=== PATIENT | female | born 1980 | race African-American/Black ===

== ENCOUNTER 2017-05-31 18:14 | Emergency (ER) | payer MEDICARE, OTHER ==
[~2017-05-31] VITALS: Ht 167.6 cm; Wt 92.2 kg
[2017-05-31] MEDS ORDERED: aptiom PO (18:29)
[2017-05-31] MEDS ORDERED: HYDROCHLOROTHIA25 MG PO (18:29)
== END 2017-05-31 18:37 | disposition home or self-care (01) ==
LOC: FSED 18:14
DX: R05 Cough (principal); I10 Essential (primary) hypertension; G40.909 Epilepsy, unspecified, not intractable, without status epilepticus
CPT/HCPCS: 99283

== ENCOUNTER 2017-07-15 11:53 | Emergency (ER) | payer MEDICARE, OTHER ==
[~2017-07-15] VITALS: Ht 167.6 cm; Wt 90.7 kg
[~2017-07-15 11:53] MED LIST: HYDROCHLOROTHIA25 MG PO; aptiom PO
--- OUTSIDE RECORDS SUMMARY | 2017-07-15 11:55 | XMS REPORT | Continuity of Care Document ---
Author Author [facility] Organization [facility] Address [address] [place] [address] Phone Unavailable Care Team Providers Care [employer] Name Role Phone NONSTAFF PCP Unavailable Advance Directives No advance directive information available. Problems No problem information available. Medications Current Home Medications Medication Dose Units Route Directions Days Qty Instructions Start Date Aptiom 800 Mg Oral Daily Hydrochlorothiazide 25 Mg Tablet 25 Mg Oral Daily 30 Tab Social History No social history information available. Hospital Discharge Instructions No hospital discharge instruction information available. Plan of Care Discharge Date 05/31/17 6:37pm Disposition HOME, SELF-CARE Condition at Discharge Stable Prescriptions See Medication Section Referrals Aleja Morataya MD Additional Instructions/Education Return to the closest emergency room if symptoms worsen. Warren fluticasone in you nostril as needed. Take coricidin 1 tab every 6 hours as needed. Follow up with your primary care physician tomorrow. Functional Status No functional status information available. Allergies, Adverse Reactions, Alerts Allergen Type Severity Reaction Status Last Updated Acetaminophen Allergy Unknown Active 05/31/17 Immunizations No immunization information available. Vital Signs Acute Vital Signs Vital Response Date/Time Height 5 ft 6 in 05/31/2017 6:22pm Weight 203.25 lb 05/31/2017 6:22pm Body Mass Index 32.8 kg/m^2 05/31/2017 6:22pm Results No relevant diagnostic test, laboratory data and/or discharge summary information available. Procedures No procedure information available. Encounters Encounter Location Arrival/Admit Date Discharge/Depart Date Attending Provider Departed Emergency Room [facility] 05/31/17 6:14pm 6:37pm DYLON MOY MD
--- OUTSIDE RECORDS SUMMARY | 2017-07-15 11:55 | XMS REPORT | Clinical Summary ---
Author Author [facility] Address Unknown Phone Unavailable Care Team Providers Care Locator Name Role Phone PCP Unavailable Allergies No Known Allergies Current Medications Prescription Sig. Disp. Refills Start End Date Status Date eslicarbazepine (APTIOM) Take 1,200 mg by mouth 2 Active 600 mg Tab (two) times daily. Active Problems Not on file Encounters Date Type Specialty Care Team Description 10/09/2016 Emergency Emergency Medicine Devan, Kumar Malaise and fatigue MD Gregor (Primary Dx) 09/28/2016 Emergency Emergency Medicine Nelson Pruett MD Viral upper respiratory tract infection (Primary Dx);Seizure (HCC) 09/28/2016 Orders Only General Internal Medicine after 07/14/2016 Family History Medical History Relation Name Comments Unremarkable Father Unremarkable Mother Relation Name Status Comments Father Mother Social History Tobacco Use Types Packs/Day Years Used Date Never Smoker Tobacco Cessation: Counseling Given: No Alcohol Use Drinks/Week oz/Week Comments No Sex Assigned at Date Recorded Not on file Last Filed Vital Signs Vital Sign Reading Time Taken Blood Pressure 140/76 10/09/2016 11:36 AM CDT Pulse 78 10/09/2016 11:36 AM CDT Temperature 37.3 C (99.1 F) 10/09/2016 9:50 AM CDT Respiratory Rate 18 10/09/2016 11:36 AM CDT Oxygen Saturation 100% 10/09/2016 11:36 AM CDT Inhaled Oxygen - - Concentration Weight 81.6 kg (180 lb) 10/09/2016 9:50 AM CDT Height 168 cm (5' 6.14") 10/09/2016 9:50 AM CDT Body Mass Index 28.93 10/09/2016 9:50 AM CDT Plan of Treatment Not on file Results * CBC with platelet count + automated diff (10/09/2016 10:16 AM) Only the most recent of 2 results within the time period is included. Component Value Ref Range WBC 6.8 4.0 - 10.0 10e3/ L RBC 4.46 4.00 - 5.00 10e6/ L Hemoglobin 13.1 12.0 - 15.0 g/dL Hematocrit 39.8 36.0 - 45.0 % MCV 89.3 82.0 - 99.0 fL MCH 29.4 27.0 - 33.0 pg MCHC 33.0 32.0 - 36.0 g/dL RDW 13.6 10.3 - 14.2 % Platelets 195 150 - 430 10e3/ L MPV 9.1 6.5 - 10.5 fL % Neutros 66 % % Lymphs 24 % % Monos 8 % % Eos 2 % % Baso 1 % # Neutros 4.52 1.80 - 8.00 10e3/ L # Lymphs 1.62 1.48 - 4.50 10e3/ L # Monos 0.52 0.00 - 1.30 10e3/ L # Eos 0.12 0.00 - 0.50 10e3/ L # Baso 0.04 0.00 - 0.20 10e3/ L Specimen Performing Laboratory Blood - Arm, [facility], [facility], [facility] [address] [place] [address] * Rapid drug screen, urine (10/09/2016 10:16 AM) Only the most recent of 2 results within the time period is included. Component Value Ref Range Methamphetamine Screen Negative Negative Barbiturate Screen Negative Negative Benzodiazepine Screen Negative Negative Cocaine (Metab.) Screen Negative Negative Methadone Screen Negative Negative Opiate Screen Negative Negative Cannabinoid Screen Negative Negative Tricyclic Screen Positive (A) Negative Amphetamine Screen Negative Negative Phencyclidine Screen Negative Negative Specimen Performing Laboratory Urine - Urine, [facility], [facility], [facility] [address] [place], [place] [id number] Narrative DRUG CUTOFF CONC. Methamphetamine 1000 ng/mL [id number] ng/mL Cannabinoid 50 ng/mL Benzodiazepine 300 ng/mL Tricyclic 1000 ng/mL [id number] ng/mL Phencyclidine 25 ng/mL Amphetamine 1000 ng/mL Opiate 300 ng/mL [id number] ng/mL This assay provides an unconfirmed qualitative test result for the clinical management of patients in emergency situations. Chain of custody not maintained. Some [id number] medications, as well as adulterants, may cause inaccurate results. Clinical correlation should be applied. A more comprehensive drug screen or confirmation of a detected drug may be performed upon request. * Screen, urine (10/09/2016 10:16 AM) Only the most recent of 2 results within the time period is included. Component Value Ref Range Preg Test, Ur Negative Specimen Performing Laboratory Urine - Urine, [facility], [facility], [facility] [address] [place] [address] * Urinalysis w/Microscopic (10/09/2016 10:16 AM) Only the most recent of 2 results within the time period is included. Component Value Ref Range Color, UA Yellow Clarity, UA Clear Specific Thompson, UA 1.025 1.001 - 1.035 pH, UA 5.5 5.0 - 8.0 Protein, UA Negative Negative Glucose, UA Negative Negative Ketones, UA Negative Negative Bilirubin, UA Negative Negative Blood, UA Negative Negative Nitrite, UA Negative Negative Leukocytes, UA Negative Negative Urobilinogen, UA 0.2 0.2 - 1.0 mg/dL Bacteria, UA Moderate Mucus Many RBC, UA None Seen /HPF WBC, UA <5 /HPF SQUAMOUS EPITHELIAL 5-10 /HPF Specimen Source Specimen Performing Laboratory Urine - Urine, [facility], [facility], [facility] [address] [place] [address] * CBC with platelet count + automated diff (10/09/2016 10:16 AM) Only the most recent of 2 results within the time period is included. Specimen Performing Laboratory Blood Narrative The following orders were created for panel order CBC with platelet count + automated diff. Procedure Abnormality Status --------- - ------ CBC with platelet count ...[[id number]] Final result Please view results for these tests on the individual orders. * Magnesium (10/09/2016 10:16 AM) Only the most recent of 2 results within the time period is included. Component Value Ref Range Magnesium 2.0 1.5 - 3.0 mg/dL Specimen Performing Laboratory Blood - Arm, [facility], [facility], [facility] [place] [address] * Basic Metabolic Panel (10/09/2016 10:16 AM) Only the most recent of 2 results within the time period is included. Component Value Ref Range Sodium 140 135 - 148 meq/L Potassium 4.2 3.6 - 5.5 meq/L Chloride 104 98 - 106 meq/L CO2 25 24 - 32 meq/L BUN 13 10 - 26 mg/dL Creatinine 0.78 0.50 - 1.20 mg/dL Glucose 97 70 - 110 mg/dL Calcium 9.1 8.5 - 10.5 mg/dL EGFR 102Comment: ESTIMATED GFR IS NOT ACCURATE mL/min/1.73 sq m CREATININE CLEARANCE IN PREDICTING GLOMERULAR FILTRATION RATE. ESTIMATED GFR IS NOT APPLICABLE FOR DIALYSIS PATIENTS. Specimen Performing Laboratory Blood - Arm, [facility], [facility], [facility] [address] [place] [address] * ED ECG Interpretation (09/28/2016 7:37 PM) Nelson Grace MD 09/28/20167:37 PM ECG/EKG Interpretation Date/Time: 09/28/2016 7:25 PM Performed by: NELSON PRUETT Authorized by: NELSON PRUETT The ECG was interpreted by ED physician. This ECG was not compared with previous ECG(s).The ECG is interpreted as sinus tachycardia. Rate is normal rate. Conduction: conduction normal. ST segments normal. T waves normal. Other findings: no other findings. Clinical Impression: non-specific ECGECG reviewed and does not meet STEMI criteria. * Carbamazepine level (09/28/2016 7:08 PM) Component Value Ref Range Carbamazepine Lvl 0.5 (L) 4.0 - 12.0 ug/mL Specimen Performing Laboratory Blood [address] [address] * XR chest 2 views (09/28/2016 6:56 PM) Specimen Performing Laboratory GE RIS Narrative FINAL REPORT TECHNIQUE: Frontal and lateral views of the chest. INDICATION: 36-year-old woman with shortness of breath. COMPARISON: None. FINDINGS: LINES/TUBES: None. LUNGS: The lungs are well inflated and clear. PLEURA: No pleural effusion or pneumothorax. HEART AND MEDIASTINUM: The cardiomediastinal silhouette is within normal limits. SOFT TISSUES AND BONES: Unremarkable. IMPRESSION: No acute cardiopulmonary abnormalities. Signed: Oleksandr Calderon MD Report Verified Date/Time:09/28/2016 19:03:46 Reading Location: [address] Consult Reading Room Procedure Note Interface, External Ris In - 09/28/2016 7:06 PM CDT FINAL REPORT TECHNIQUE: Frontal and lateral views of the chest. INDICATION: 36-year-old woman with shortness of breath. COMPARISON: None. FINDINGS: LINES/TUBES: None. LUNGS: The lungs are well inflated and clear. PLEURA: No pleural effusion or pneumothorax. HEART AND MEDIASTINUM: The cardiomediastinal silhouette is within normal limits. SOFT TISSUES AND BONES: Unremarkable. IMPRESSION: No acute cardiopulmonary abnormalities. Signed: Oleksandr Calderon MD Report Verified Date/Time: 09/28/2016 19:03:46 Reading Location: [address] Consult Reading Room * CT brain without IV contrast (09/28/2016 6:56 PM) Specimen Performing Laboratory HTP RIS Narrative FINAL REPORT CT head without contrast INDICATION: Seizures, confusion TECHNIQUE: Axial noncontrast CT images through the head were obtained. This exam was performed according to our departmental dose optimization program which includes automated exposure control, adjustment of the mA and/or kV according to patient size and/or use of iterative reconstruction technique. COMPARISON: None available. FINDINGS: There is no acute intracranial hemorrhage or mass effect. There are no specific CT findings of acute infarct. Please note that CT is insensitive for early or small infarcts. There is no hydrocephalus, midline shift, or cisternal effacement. The visualized sinuses and mastoid air cells are well aerated. The globes appear proptotic. The calvarium is intact. IMPRESSION: No acute intracranial hemorrhage or mass effect. No specific CT findings of acute infarct. If there is persistent concern for acute abnormality, MRI is advised. Signed: Derrek Winters MD Report Verified Date/Time:09/28/2016 19:01:11 Reading Location: [facility] Radiology Reading Room Procedure Note Interface, External Ris In - 09/28/2016 7:03 PM CDT FINAL REPORT CT head without contrast INDICATION: Seizures, confusion TECHNIQUE: Axial noncontrast CT images through the head were obtained. This exam was performed according to our departmental dose optimization program which includes automated exposure control, adjustment of the mA and/or kV according to patient size and/or use of iterative reconstruction technique. COMPARISON: None available. FINDINGS: There is no acute intracranial hemorrhage or mass effect. There are no specific CT findings of acute infarct. Please note that CT is insensitive for early or small infarcts. There is no hydrocephalus, midline shift, or cisternal effacement. The visualized sinuses and mastoid air cells are well aerated. The globes appear proptotic. The calvarium is intact. IMPRESSION: No acute intracranial hemorrhage or mass effect. No specific CT findings of acute infarct. If there is persistent concern for acute abnormality, MRI is advised. Signed: Derrek Winters MD Report Verified Date/Time: 09/28/2016 19:01:11 Reading Location: [facility] Radiology Reading Room * ECG 12 lead (09/28/2016 6:40 PM) Specimen Performing Laboratory HTP MUSE Narrative Ventricular Rate 110 BPM Atrial Rate 110 BPM P-R Interval 116 ms QRS Duration 76 ms Q-T Interval 320 ms QTC Calculation(Bazett) 433 ms P [place] 48 degrees R [place] 52 degrees T [place] 12 degrees Sinus tachycardia Otherwise normal ECG No previous ECGs available Confirmed by MD BART, MEGHA ([id number]) on 09/29/2016 11:40:34 AM Procedure Note Interface, External Ris In - 09/29/2016 11:40 AM CDT Ventricular Rate 110 BPM Atrial Rate 110 BPM P-R Interval 116 ms QRS Duration 76 ms Q-T Interval 320 ms QTC Calculation(Bazett) 433 ms P [place] 48 degrees R [place] 52 degrees T [place] 12 degrees Sinus tachycardia Otherwise normal ECG No previous ECGs available Confirmed by MD ARRIAGA JORGE ([id number]) on 09/29/2016 11:40:34 AM * Rapid Myoglobin (09/28/2016 6:33 PM) Component Value Ref Range Rapid Myoglobin 95 <107 ng/mL Specimen Performing Laboratory Blood [facility], [facility] , [facility] [address] [place] [address] * Rapid Troponin I (09/28/2016 6:33 PM) Component Value Ref Range Rapid Troponin I <0.05 <0.05 ng/mL Specimen Performing Laboratory Blood [facility], [facility] , [facility] [address] [place] [address] * Rapid CK-MB (09/28/2016 6:33 PM) Component Value Ref Range Rapid CKMB <1.0 0.0 - 4.3 ng/mL Specimen Performing Laboratory Blood [facility], [facility] , [facility] [address] [place] [address] * PT/PTT (09/28/2016 6:33 PM) Component Value Ref Range Protime 10.3 9.8 - 12.0 seconds INR 1.0 <=5.9 PTT 24.1 (L) 25.8 - 34.5 seconds Specimen Performing Laboratory [facility], [facility] , [facility] [address] [place] [address] Narrative RECOMMENDED COUMADIN/WARFARIN INR THERAPY RANGES STANDARD DOSE: 2.0 - 3.0 Includes: PROPHYLAXIS for venous thrombosis, systemic embolization; TREATMENT for venous thrombosis and/or pulmonary embolus. HIGH RISK: Target INR is 2.5-3.5 for patients with mechanical heart valves. * B-type Natriuretic Factor (BNP) (09/28/2016 6:33 PM) Component Value Ref Range BNP 162 (H) 0 - 100 pg/mL Specimen Performing Laboratory Blood [facility], [facility] , [facility] [address] [place] [address] * Creatine Kinase (CK) (09/28/2016 6:33 PM) Component Value Ref Range Total CK 55 25 - 235 U/L Specimen Performing Laboratory Blood [facility], [facility] , [facility] [address] [place] [id number] * Ethanol (09/28/2016 6:33 PM) Component Value Ref Range Ethanol Lvl <10 <=10 mg/dL Specimen Performing Laboratory Blood [address] [address] * POC-Glucose meter (09/28/2016 6:31 PM) Component Value Ref Range POC-Glucose Meter 109Comment: TESTED AT [facility] [address] [place] [address] 70 - 110 mg/dL [facility] [id number] Specimen Performing Laboratory Blood [address] [address] after 07/14/2016
--- OUTSIDE RECORDS SUMMARY | 2017-07-15 11:55 | XMS REPORT ---
Author Author [facility] Address Unknown Phone Unavailable Care Team Providers Care Luggage Maker Name Role Phone UNKNOWN, REFFERING PP Unavailable ANDRES SHAW Unavailable Unavailable OFORDEME, KENECHUKWU Unavailable Unavailable OTHEE, GORAN Unavailable Unavailable Problems This patient has no known problems. Allergies, Adverse Reactions, Alerts This patient has no known allergies or adverse reactions. Medications This patient has no known medications. Encounters Start Date/Time End Date/Time Encounter Type Admission Type Attending [facility] Facility Care Department Encounter ID 2017-07-25 00:00:00 2017-07-25 00:00:00 Outpatient [facility] [id number] 2017-07-16 00:00:00 2017-07-16 00:00:00 Outpatient [facility] [id number] 2017-07-15 00:00:00 2017-07-15 00:00:00 Outpatient [facility] [id number] 2017-07-14 13:34:00 2017-07-14 13:34:00 Emergency [facility] [id number] 2017-06-06 08:49:30 2017-06-06 08:49:30 Outpatient [facility] [id number] 2017-05-13 10:15:07 2017-05-13 10:15:07 Emergency [facility] [id number] 2017-05-09 00:00:00 2017-05-09 00:00:00 Outpatient [facility] [id number] 2017-04-29 11:12:34 2017-04-29 11:12:34 Emergency [facility] [id number] 2017-04-25 13:20:21 2017-04-25 13:20:21 Outpatient [facility] [id number] 2017-03-20 11:19:58 2017-03-20 11:19:58 Outpatient [facility] [id number] 2017-03-20 00:00:00 2017-03-20 00:00:00 Outpatient [facility] [id number] 2017-02-28 09:12:55 2017-02-28 09:12:55 Outpatient [facility] [id number] 2017-02-28 08:45:49 2017-02-28 08:45:49 Outpatient [facility] [id number] 2017-02-21 00:00:00 2017-02-21 00:00:00 Outpatient [facility] [id number] 2017-01-03 00:00:00 2017-01-03 00:00:00 Outpatient [facility] [id number] 2017-01-02 10:19:24 2017-01-02 10:19:24 Outpatient [facility] [id number] 2016-12-17 14:14:29 2016-12-17 14:14:29 Outpatient [facility] [id number] 2016-12-17 00:00:00 2016-12-17 00:00:00 Outpatient [facility] [id number] 2016-12-11 19:56:00 2016-12-11 19:56:00 Emergency [facility] [id number] 2016-11-28 00:00:00 2016-11-28 00:00:00 Outpatient [facility] [id number] 2016-10-16 14:40:14 2016-10-16 14:40:14 Outpatient [facility] [id number] 2016-09-13 00:00:00 2016-09-13 00:00:00 Outpatient [facility] [id number] 2016-08-30 00:00:00 2016-08-30 00:00:00 Outpatient [facility] [id number] 2016-08-27 00:00:00 2016-08-27 00:00:00 Outpatient [facility] [id number] 2016-08-15 15:38:00 2016-08-15 15:38:00 Emergency [facility] [id number] Results Test Description Test Time Test Comments Text Results Atomic Results Result Comments Strep A Screen, Rapid 2016-12-08 10:18:00 Specimen: ThroatCollected: 12/06 18:50 Status: Final Last Updated: 12/08/2016 10:18 (1) ER Bed 6 Strep A Screen Rapid (Final) (Final) Negative Blood [place](24 hrs) ( Final) (Final) 12/07/16 No Group A Strep isolated Blood [place](48 hrs) (Final ) (Final) 12/08/16 No Group A Strep isolated Urinalysis Complete 2016-12-06 22:12:00 Color (test code=COLOR) Yellow Yellow,Straw,Pl yellow Clarity (test code=CLAR) Clear Clear Specific [place] (test code=SPGR) 1.026 1.001-1.035 pH (test code=PH) 7.0 5.0-9.0 Ketone (test code=KET) Negative mg/dL Negative Glucose (test code=GLUCUR) Negative mg/dL Negative Protein (test code=PROT) 25 mg/dL Negative Bilirubin (test code=BILI) Negative mg/dL Negative Occult Blood (test code=UDOB) Negative Negative Urobilinogen (test code=UROB) 1.0 mg/dL 0.2-1.0 Nitrite (test code=NIT) Negative Negative Leuk Esterase (test code=LEUK) Negative Negative Micros Exam (test code=MEXAM) Indicated Epithelial Cells (test code=EPI) 3-5 /LPF 0-30 WBC, Urine (test code=UWBC) 0-1 /HPF 0-5 RBC, Urine (test code=URBC) None Seen /HPF 0-5 Bacteria (test code=BACT) Few /HPF Basic Metabolic [id number] 20:47:00* Test Item Value Reference Range Comments Sodium (test code=NA) 139 mmol/L 135-145 Potassium (test code=K) 4.8 mmol/L 3.5-5.1 HEMOLYZED Chloride (test code=CL) 104 mmol/L 98-105 Carbon Dioxide (test code=CO2) 24 mmol/L 22-29 Glucose (test code=GLU) 97 mg/dL 70-115 Blood Urea Nitrogen (test code=BUN) 12 mg/dL 6-20 Creatinine (test code=CREAT) 0.8 mg/dL 0.5-0.9 Calcium (test code=CA) 8.9 mg/dL 8.3-10.5 BUN/Creatinine Ratio (test code=BCRATIO) 15.0 Anion Gap (test code=AGAP) 11 mmol/L 7-16 Estimated GFR (test code=GFR) >60 mL/min/1.73m2 eGFR (estimated Glomerular Filtration Rate) is an estimated value,calculated from the patient's serum creatinine using the MDRD equation.It is NOT the patient's actual GFR. The eGFR provides a more clinicallyuseful measure of kidney disease than serum creatinine alone.This calculation takes sex and race into account, if the informationis provided. If the race is not provided, and the patient isAfrican- Cymro, multiply by 1.212. If sex is not provided, and thepatient is female, multiply by 0.742. Results for patients <18 years ofage have not been validated by the MDRD study and should be interpretedwith caution.eGFR Result Interpretation:eGFR > or=60 is in the Normal RangeeGFR < 60 may mean kidney diseaseeGFR < 15 may mean kidney failureRanges recommended by the National Kidney Foundation,http://nkdep.nih.gov CBC with [id number] 20:05:00* Test Item Value Reference Range Comments WBC (test code=WBC) 7.3 K/cumm 4.4-10.5 RBC (test code=RBC) 4.08 M/cumm 3.75-5.20 Hemoglobin (test code=HGB) 12.5 gm/dL 12.2-14.8 Hematocrit (test code=HCT) 39.0 % 36.5-44.4 MCV (test code=MCV) 95.5 fL 80-100 MCH (test code=MCH) 30.5 pg 27.0-32.5 MCHC (test code=MCHC) 32.0 g/dL 32.0-37.5 RDW (test code=RDW) 13.7 % 11.5-14.5 Platelet Count (test code=PLTCT) 210 K/cumm 140-440 MPV (test code=MPV) 8.9 fL Diff Method (test code=DIFFM) Auto Neutrophil (test code=NEUT) 77.4 % 36-70 Lymphocyte (test code=LYMPH) 17.3 % 12-44 Monocyte (test code=MONO) 3.9 % 0-11 Eosinophil (test code=EOS) 1.1 % 0-7 Basophil (test code=BASO) 0.3 % 0-2 Neutro Abs (test code=ANEUT) 5.6 K/cumm 1.6-7.4 Lymph Abs (test code=ALYMPH) 1.3 K/cumm 0.5-4.6 Schley Abs (test code=AMONO) 0.3 K/cumm 0.0-1.2 Eos Abs (test code=AEOS) 0.08 K/cumm 0.00-0.74 Baso Abs (test code=ABASO) 0.0 K/cumm 0.00-0.21 BHCG, Urine, [id number] 19:40:00* Test Item Value Reference Range Comments Preg Qual [Ur] (test code=HUHCG) Negative Negative XR CHEST 1 [id number] 18:16:39STUDY: Chest radiographHISTORY: Chest pain, coughCOMPARISON: NoneTECHNIQUE: Frontal view of the chest.SITE: [id number]:The cardiac and mediastinal silhouette is unremarkable. There is nopleural effusion , pneumothorax or focal consolidation.No acute osseous abnormalities are identified.IMPRESSION:No acute pulmonary abnormality.URINALYSIS W/ [id number] 11:08:00* Test Item Value Reference Range Comments COLOR (BEAKER) (test ouek=061) Yellow CLARITY (BEAKER) (test xcrk=353) Clear SPECIFIC GRAVITY UA (BEAKER) (test ofxn=953) 1.025 1.001-1.035 PH UA (BEAKER) (test xgvj=968) 5.5 5.0-8.0 PROTEIN UA (BEAKER) (test nybr=887) Negative Negative GLUCOSE UA (BEAKER) (test gxwe=216) Negative Negative KETONES UA (BEAKER) (test ltkw=036) Negative Negative BILIRUBIN UA (BEAKER) (test jvfy=573) Negative Negative BLOOD UA (BEAKER) (test azrz=617) Negative Negative NITRITE UA (BEAKER) (test mcqd=179) Negative Negative LEUKOCYTE ESTERASE UA (BEAKER) (test ktjg=036) Negative Negative UROBILINOGEN UA (BEAKER) (test gnpg=470) 0.2 mg/dL 0.2-1.0 BACTERIA (BEAKER) (test zeaf=487) Moderate MUCUS (BEAKER) (test bzrm=0268) Many RBC UA-MANUAL (BEAKER) (test sgjz=6122) None Seen /HPF WBC UA-MANUAL (BEAKER) (test wlic=1887) <5 /HPF SQUAMOUS EPITHELIAL MANUAL (BEAKER) (test fxjt=4230) 5-10 /HPF SOURCE(BEAKER) (test jpse=8469) RAPID DRUG SCREEN, [id number] 11:03:00* Test Item Value Reference Range Comments METHAMPHETAMINE SCREEN (BEAKER) (test wcga=0668) Negative Negative BARBITURATE URINE (BEAKER) (test dynx=933) Negative Negative BENZODIAZEPINE SCREEN URINE (BEAKER) (test vbqn=131) Negative Negative COCAINE (METAB.) SCREEN (BEAKER) (test sylr=0825) Negative Negative METHADONE SCREEN (BEAKER) (test cdii=6777) Negative Negative OPIATE SCREEN URINE (BEAKER) (test czni=852) Negative Negative CANNABINOID SCREEN URINE (BEAKER) (test qeoq=396) Negative Negative TRICYCLIC SCREEN (BEAKER) (test hlqs=1264) Positive Negative AMPHETAMINE SCREEN URINE (BEAKER) (test sbub=580) Negative Negative PHENCYCLIDINE SCREEN URINE (BEAKER) (test ossa=250) Negative Negative DRUG CUTOFF CONC.Methamphetamine 1000 ng/mLCocaine 300 ng/mLCannabinoid 50 ng/mLBenzodiazepine 300 ng/ mLTricyclic 1000 ng/mLBarbiturate 300 ng/mLPhencyclidine 25 ng/mLAmphetamine 1000 ng/mLOpiate 300 ng/ mLMethadone 300 ng/mLThis assay provides an unconfirmed qualitative test result for the clinical management of patients in emergency situations. Chain of custody not maintained. Some errx-kzc-feqqelt medications, as well as adulterants, may cause inaccurate results. Clinical correlation should be applied. A more comprehensive drug screen or confirmation of a detected drug may be performed upon request. SCREEN, [id number] 11:00:00* Test Item Value Reference Range Comments TEST URINE (BEAKER) (test jocz=891) Negative [id number] 10:45:00* Test Item Value Reference Range Comments MAGNESIUM (BEAKER) (test uypi=710) 2.0 mg/dL 1.5-3.0 BASIC METABOLIC [id number] 10:45:00* Test Item Value Reference Range Comments SODIUM (BEAKER) (test zkeq=357) 140 meq/L 135-148 POTASSIUM (BEAKER) (test wdur=521) 4.2 meq/L 3.6-5.5 CHLORIDE (BEAKER) (test rzcb=868) 104 meq/L 98-106 CO2 (BEAKER) (test vqgx=671) 25 meq/L 24-32 BLOOD UREA NITROGEN (BEAKER) (test mako=761) 13 mg/dL 10-26 CREATININE (BEAKER) (test vfmp=589) 0.78 mg/dL 0.50-1.20 GLUCOSE RANDOM (BEAKER) (test xjix=831) 97 mg/dL 70-110 CALCIUM (BEAKER) (test tsmh=726) 9.1 mg/dL 8.5-10.5 EGFR (BEAKER) (test afok=2191) 102 mL/min/1.73 sq m ESTIMATED GFR IS NOT ACCURATE CREATININE CLEARANCE IN PREDICTING GLOMERULAR FILTRATION RATE. ESTIMATED GFR IS NOT APPLICABLE FOR DIALYSIS PATIENTS. CBC W/PLT COUNT & AUTO [id number] 10:39:00* Test Item Value Reference Range Comments WHITE BLOOD CELL COUNT (BEAKER) (test rtbe=446) 6.8 10e3/ L 4.0-10.0 RED BLOOD CELL COUNT (BEAKER) (test dqna=562) 4.46 10e6/ L 4.00-5.00 HEMOGLOBIN (BEAKER) (test kleo=991) 13.1 g/dL 12.0-15.0 HEMATOCRIT (BEAKER) (test bida=062) 39.8 % 36.0-45.0 MEAN CORPUSCULAR VOLUME (BEAKER) (test dzid=265) 89.3 fL 82.0-99.0 MEAN CORPUSCULAR HEMOGLOBIN (BEAKER) (test qtfg=337) 29.4 pg 27.0-33.0 MEAN CORPUSCULAR HEMOGLOBIN CONC (BEAKER) (test zymj=991) 33.0 g/dL 32.0- 36.0 RED CELL DISTRIBUTION WIDTH (BEAKER) (test tbzw=993) 13.6 % 10.3-14.2 PLATELET COUNT (BEAKER) (test ucgd=264) 195 10e3/ L 150-430 MEAN PLATELET VOLUME (BEAKER) (test egrt=177) 9.1 fL 6.5-10.5 NEUTROPHILS RELATIVE PERCENT (BEAKER) (test aowz=201) 66 % LYMPHOCYTES RELATIVE PERCENT (BEAKER) (test qkcb=846) 24 % MONOCYTES RELATIVE PERCENT (BEAKER) (test klnn=251) 8 % EOSINOPHILS RELATIVE PERCENT (BEAKER) (test blcx=186) 2 % BASOPHILS RELATIVE PERCENT (BEAKER) (test jgam=605) 1 % NEUTROPHILS ABSOLUTE COUNT (BEAKER) (test aphk=121) 4.52 10e3/ L 1.80-8.00 LYMPHOCYTES ABSOLUTE COUNT (BEAKER) (test uizn=715) 1.62 10e3/ L 1.48-4.50 MONOCYTES ABSOLUTE COUNT (BEAKER) (test bamb=183) 0.52 10e3/ L 0.00-1.30 EOSINOPHILS ABSOLUTE COUNT (BEAKER) (test ugmc=009) 0.12 10e3/ L 0.00-0.50 BASOPHILS ABSOLUTE COUNT (BEAKER) (test raao=170) 0.04 10e3/ L 0.00-0.20 URINALYSIS W/ [id number] 19:57:00* Test Item Value Reference Range Comments COLOR (BEAKER) (test fjcx=515) Yellow CLARITY (BEAKER) (test adkt=416) Clear SPECIFIC GRAVITY UA (BEAKER) (test msxp=068) 1.020 1.001-1.035 PH UA (BEAKER) (test rlnp=055) 5.5 5.0-8.0 PROTEIN UA (BEAKER) (test lanx=788) Trace Negative GLUCOSE UA (BEAKER) (test eudt=613) Negative Negative KETONES UA (BEAKER) (test fyqe=170) Negative Negative BILIRUBIN UA (BEAKER) (test zidz=764) Negative Negative BLOOD UA (BEAKER) (test sprd=593) Negative Negative NITRITE UA (BEAKER) (test zxrd=487) Negative Negative LEUKOCYTE ESTERASE UA (BEAKER) (test dlqx=817) Negative Negative UROBILINOGEN UA (BEAKER) (test dgkp=986) 0.2 mg/dL 0.2-1.0 BACTERIA (BEAKER) (test ikkr=785) Rare RBC UA-MANUAL (BEAKER) (test mgth=9477) None Seen /HPF WBC UA-MANUAL (BEAKER) (test fxte=8890) <5 /HPF SQUAMOUS EPITHELIAL MANUAL (BEAKER) (test mwlz=1876) <5 /HPF SOURCE(BEAKER) (test rscg=2161) SCREEN, [id number] 19:55:00* Test Item Value Reference Range Comments TEST URINE (BEAKER) (test ufhw=097) Negative RAPID DRUG SCREEN, [id number] 19:45:00* Test Item Value Reference Range Comments METHAMPHETAMINE SCREEN (BEAKER) (test zhhb=4946) Negative Negative BARBITURATE URINE (BEAKER) (test bcjm=002) Negative Negative BENZODIAZEPINE SCREEN URINE (BEAKER) (test emyt=218) Positive Negative COCAINE (METAB.) SCREEN (BEAKER) (test zrxr=8483) Negative Negative METHADONE SCREEN (BEAKER) (test ulfm=7589) Negative Negative OPIATE SCREEN URINE (BEAKER) (test tuox=339) Negative Negative CANNABINOID SCREEN URINE (BEAKER) (test joef=718) Negative Negative TRICYCLIC SCREEN (BEAKER) (test ahsy=2155) Positive Negative AMPHETAMINE SCREEN URINE (BEAKER) (test nozf=766) Negative Negative PHENCYCLIDINE SCREEN URINE (BEAKER) (test ddrc=555) Negative Negative DRUG CUTOFF CONC.Methamphetamine 1000 ng/mLCocaine 300 ng/mLCannabinoid 50 ng/mLBenzodiazepine 300 ng/ mLTricyclic 1000 ng/mLBarbiturate 300 ng/mLPhencyclidine 25 ng/mLAmphetamine 1000 ng/mLOpiate 300 ng/ mLMethadone 300 ng/mLThis assay provides an unconfirmed qualitative test result for the clinical management of patients in emergency situations. Chain of custody not maintained. Some nduk-qyd-nhuvhop medications, as well as adulterants, may cause inaccurate results. Clinical correlation should be applied. A more comprehensive drug screen or confirmation of a detected drug may be performed upon request.[id number] 19:41:00* Test Item Value Reference Range Comments CARBAMAZEPINE LEVEL (BEAKER) (test ouzc=097) 0.5 ug/mL 4.0-12.0 [id number] 19:27:00* Test Item Value Reference Range Comments ETHANOL (BEAKER) (test anym=458) < mg/dL <=10 RAPID [id number] 19:21:00* Test Item Value Reference Range Comments RAPID MYOGLOBIN (BEAKER) (test gzoj=2571) 95 ng/mL <107 B-TYPE NATRIURETIC FACTOR (BNP)2016-09-28 19:21:00* Test Item Value Reference Range Comments B-TYPE NATRIURETIC PEPTIDE (BEAKER) (test xket=809) 162 pg/mL 0-100 BASIC METABOLIC [id number] 19:20:00* Test Item Value Reference Range Comments SODIUM (BEAKER) (test nohx=287) 145 meq/L 135-148 POTASSIUM (BEAKER) (test pkis=260) 3.6 meq/L 3.6-5.5 CHLORIDE (BEAKER) (test cgin=823) 104 meq/L 98-106 CO2 (BEAKER) (test jdfp=689) 11 meq/L 24-32 BLOOD UREA NITROGEN (BEAKER) (test rtcp=379) 13 mg/dL 10-26 CREATININE (BEAKER) (test dvhi=111) 1.21 mg/dL 0.50-1.20 GLUCOSE RANDOM (BEAKER) (test wsgp=086) 115 mg/dL 70-110 CALCIUM (BEAKER) (test yfmw=065) 9.3 mg/dL 8.5-10.5 EGFR (BEAKER) (test thdm=8310) mL/min/1.73 sq m INSUFFICIENT CLINICAL DATA TO CALCULATE ESTIMATED GFR. RAPID TROPONIN [id number] 19:20:00* Test Item Value Reference Range Comments RAPID TROPONIN I (BEAKER) (test oxfe=9069) < ng/mL <0.05 RAPID [id number] 19:20:00* Test Item Value Reference Range Comments RAPID CKMB (BEAKER) (test xamu=6353) < ng/mL 0.0-4.3 [id number] 18:55:00* Test Item Value Reference Range Comments PROTIME (BEAKER) (test kfqf=186) 10.3 seconds 9.8-12.0 INR (BEAKER) (test hlpz=591) 1.0 <=5.9 PARTIAL THROMBOPLASTIN TIME (BEAKER) (test tsnk=138) 24.1 seconds 25.8-34.5 RECOMMENDED COUMADIN/WARFARIN INR THERAPY RANGESSTANDARD DOSE: 2.0 - 3.0 Includes: PROPHYLAXIS for venous thrombosis, systemic embolization; TREATMENT for venous thrombosis and/or pulmonary embolus.HIGH RISK: Target INR is 2.5-3.5 for patients with mechanical heart valves.[id number] 18:53:00* Test Item Value Reference Range Comments MAGNESIUM (BEAKER) (test wnhx=862) 2.2 mg/dL 1.5-3.0 CREATINE KINASE (CK)2016-09-28 18:53:00* Test Item Value Reference Range Comments CREATINE KINASE TOTAL (BEAKER) (test nxfm=809) 55 U/L 25-235 CBC W/PLT COUNT & AUTO [id number] 18:41:00* Test Item Value Reference Range Comments WHITE BLOOD CELL COUNT (BEAKER) (test esri=371) 10.2 10e3/ L 4.0-10.0 RED BLOOD CELL COUNT (BEAKER) (test bfaq=073) 4.81 10e6/ L 4.00-5.00 HEMOGLOBIN (BEAKER) (test ulnw=527) 14.0 g/dL 12.0-15.0 HEMATOCRIT (BEAKER) (test bgcm=471) 42.8 % 36.0-45.0 MEAN CORPUSCULAR VOLUME (BEAKER) (test kdnc=964) 89.0 fL 82.0-99.0 MEAN CORPUSCULAR HEMOGLOBIN (BEAKER) (test wsgn=785) 29.2 pg 27.0-33.0 MEAN CORPUSCULAR HEMOGLOBIN CONC (BEAKER) (test zinc=377) 32.8 g/dL 32.0- 36.0 RED CELL DISTRIBUTION WIDTH (BEAKER) (test uxjr=101) 13.7 % 10.3-14.2 PLATELET COUNT (BEAKER) (test fyzi=492) 231 10e3/ L 150-430 MEAN PLATELET VOLUME (BEAKER) (test rlsh=291) 8.8 fL 6.5-10.5 NEUTROPHILS RELATIVE PERCENT (BEAKER) (test zwis=657) 54 % LYMPHOCYTES RELATIVE PERCENT (BEAKER) (test tzpj=099) 32 % MONOCYTES RELATIVE PERCENT (BEAKER) (test ipkv=747) 11 % EOSINOPHILS RELATIVE PERCENT (BEAKER) (test lmvf=007) 2 % BASOPHILS RELATIVE PERCENT (BEAKER) (test xxeo=758) 1 % NEUTROPHILS ABSOLUTE COUNT (BEAKER) (test fumc=121) 5.51 10e3/ L 1.80-8.00 LYMPHOCYTES ABSOLUTE COUNT (BEAKER) (test rxzr=821) 3.27 10e3/ L 1.48-4.50 MONOCYTES ABSOLUTE COUNT (BEAKER) (test hlvn=201) 1.16 10e3/ L 0.00-1.30 EOSINOPHILS ABSOLUTE COUNT (BEAKER) (test zxrj=239) 0.17 10e3/ L 0.00-0.50 BASOPHILS ABSOLUTE COUNT (BEAKER) (test xzyt=499) 0.11 10e3/ L 0.00-0.20 POCT-GLUCOSE [id number] 18:34:00* Test Item Value Reference Range Comments POC-GLUCOSE METER (AL) (test yvgg=2803) 109 mg/dL 70-110 TESTED AT [address] [address]
== END 2017-07-15 12:37 | disposition home or self-care (01) ==
LOC: FSED 11:53
DX: J00 Acute nasopharyngitis [common cold] (principal)
CPT/HCPCS: 83518; 99282